=== PATIENT | female | born 1945 | race Caucasian/White ===

== ENCOUNTER → 2017-02-17 | Outpatient (REF) | payer MEDICARE, OTHER | LOC: M SMT 12:51 | PROVIDERS: ATTEND Nurse Practitioner Women's Health | DX: R31.29 Other microscopic hematuria (principal) | CPT/HCPCS: 81001; 87086; 88108; G0463 ==

== ENCOUNTER → 2017-05-21 | Outpatient (REF) | payer MEDICARE, OTHER | LOC: M LAB REF 12:26 | PROVIDERS: ATTEND Ophthalmology | DX: D23.11 Other benign neoplasm of skin of right eyelid, including canthus (principal); D23.12 Other benign neoplasm of skin of left eyelid, including canthus ==

== ENCOUNTER → 2018-05-25 | Outpatient (REF) | payer MEDICARE, OTHER | LOC: M LAB REF 11:34 | DX: E04.2 Nontoxic multinodular goiter (principal) | CPT/HCPCS: 88173 ==

== ENCOUNTER → 2019-04-14 | Outpatient (REF) | payer MEDICARE, OTHER ==
[2019-04-14 13:20] LABS: FOLATE > 24.0 NG/ML; VITAMIN B12 LEVEL 596 PG/ML
== END ==
LOC: M LABNEURO 09:32
PROVIDERS: ATTEND Psychiatry & Neurology Neurology
DX: E53.8 Deficiency of other specified B group vitamins (principal)

== ENCOUNTER → 2020-04-04 | Outpatient (CLI) | payer MEDICARE, OTHER ==
--- NOTE | 2020-05-02 08:34 | REP ---
LOW DOSE LUNG SCREENING CT CLINICAL: Nicotine dependence. TECHNIQUE: Axial noncontrast images from the thoracic inlet to the upper abdomen using lung screening technique. COMPARISON: None. FINDINGS: Mild/moderate emphysematous changes are appreciated along with presumed somewhat irregular linear scarring at the bilateral bases. No nodule. No mass. No effusion. Tracheobronchial tree is patent. Limited evaluation of the mediastinum demonstrates atherosclerotic disease to the thoracic aorta and coronary arteries. IMPRESSION: Emphysematous changes and presumed somewhat irregular linear scarring at the bilateral lung bases. No nodule or mass. Findings likely represent Lung-RADS category 2. Annual low dose CT surveillance is recommended. MTDD
== END ==
LOC: M RAD 10:33
PROVIDERS: ATTEND Family Medicine
DX: Z12.2 Encounter for screening for malignant neoplasm of respiratory organs (principal); F17.210 Nicotine dependence, cigarettes, uncomplicated; J43.9 Emphysema, unspecified

== ENCOUNTER → 2020-05-05 | Outpatient (CLI) | payer MEDICARE, OTHER ==
[2020-05-05 11:17] LABS: COLLAGEN EPINEPHRINE 72 SECONDS (74-162)
== END ==
LOC: M LAB 10:31
PROVIDERS: ATTEND Physical Medicine & Rehabilitation
DX: M51.37 Other intervertebral disc degeneration, lumbosacral region (principal)

== ENCOUNTER → 2020-06-07 | Outpatient (CLI) | payer MEDICARE, OTHER | LOC: M LABSMTC 11:21 | PROVIDERS: ATTEND Physical Medicine & Rehabilitation | DX: Z01.818 Encounter for other preprocedural examination (principal) ==

== ENCOUNTER → 2020-06-09 | Outpatient (CLI) | payer MEDICARE, OTHER ==
[2020-06-09 14:51] LABS: PLATELET COUNT, AUTOMATED 287 10^3/uL (150-450)
== END ==
LOC: M LAB 13:59
PROVIDERS: ATTEND Physician Assistant
DX: Z01.818 Encounter for other preprocedural examination (principal)

== ENCOUNTER → 2021-04-16 | Outpatient (CLI) | payer MEDICARE, OTHER ==
--- NOTE | 2021-04-16 10:28 | REP ---
INDICATION: NICOTINE DEPENDENCE. COMPARISON: 04/04/2020 TECHNIQUE: Axial noncontrast images from the thoracic inlet to the upper abdomen using low-dose lung screening technique (LDCT). As per the protocol only lung window images were sent to the read station for interpretation FINDINGS: There has been no significant change in appearance of the lung ramirez. Emphysematous changes with scattered areas of fibrotic change are noted status quo. There is cylindrical bronchiectasis which is also unchanged. No new abnormal nodules, masses, or opacities have developed. Grossly, the mediastinum and pulmonary merrick are unchanged. Grossly, the imaged upper abdomen and imaged osseous structures are unchanged. IMPRESSION: No significant change compared to the prior exam with findings as described above. Lung rads category 2 exam. <Electronically signed by Yg Pa > 04/16/21 [id number]
== END ==
LOC: M RAD 09:49
PROVIDERS: ATTEND Family Medicine
DX: Z12.2 Encounter for screening for malignant neoplasm of respiratory organs (principal); F17.210 Nicotine dependence, cigarettes, uncomplicated